=== PATIENT | male | born 1965 | race African-American/Black ===

== ENCOUNTER 2022-03-08 06:00 | Emergency (ER) | payer OTHER ==
[2022-03-08 06:49] VITALS: BP 138/89; PULSE 67; RESP 20; TEMP 97.7; BMI 21.6
[2022-03-08 10:15] LABS: URINE APPEARANCE CLEAR; URINE BILIRUBIN NEGATIVE (NEGATIVE); URINE COLOR YELLOW; URINE GLUCOSE (UA) NEGATIVE (NEGATIVE); URINE KETONE NEGATIVE (NEGATIVE); URINE LEUK ESTERASE NEGATIVE (NEGATIVE); URINE NITRITE NEGATIVE (NEGATIVE); URINE PROTEIN NEGATIVE (NEGATIVE); URINE UROBILINOGEN 0.2 mg/dL (0.2-1.0)
== END 2022-03-08 09:57 | disposition home or self-care (01) ==
LOC: JER 06:00
DX: R39.11 Hesitancy of micturition (principal); K64.8 Other hemorrhoids
CPT/HCPCS: 81003; 87086; 99283-25